=== PATIENT | female | born 1950 | race Caucasian/White ===

== ENCOUNTER 2021-02-03 15:21 | Inpatient (IN) | payer MEDICARE, OTHER ==
[~2021-02-03] VITALS: Ht 157.5 cm; Wt 59.0 kg
--- NOTE | 2021-02-03 15:28 | NUR ---
pt ayesha from a dialysis center, intermediate treatment started c/o shortness of breath. pt is on 02 at home. 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 arrived at ed on 6L via nasal canula. placed on monitor. vss. awaitng md liao.
[2021-02-03] MEDS ORDERED: CITA20TA16 PO (15:43)
--- NOTE | 2021-02-03 15:48 | NUR ---
dr jacinto at bedside for eval.
[2021-02-03] MEDS ORDERED: NITR0.4T48 SL (15:54)
[2021-02-03] MEDS ORDERED: METO100T14 PO (15:54)
[2021-02-03] MEDS ORDERED: ASPI-1169 PO (15:54)
[2021-02-03] MEDS ORDERED: ACYC400T19 PO (15:54)
[2021-02-03] MEDS ORDERED: LEVO25TA7 PO (15:54)
[2021-02-03] MEDS ORDERED: NIFE60TA73 PO (15:54)
[2021-02-03] MEDS ORDERED: FOLI0.8T43 PO (15:54)
[2021-02-03] MEDS ORDERED: ALPR0.255 PO (15:54)
[2021-02-03] MEDS ORDERED: BUPR100T6 PO (15:54)
[2021-02-03] MEDS ORDERED: CYCL100C8 PO (15:54)
[2021-02-03] MEDS ORDERED: DOCU-141 PO (15:54)
[2021-02-03] MEDS ORDERED: OXYC-133 PO (15:54)
--- NOTE | 2021-02-03 16:10 | NUR ---
minilab operator at bedside for eval.
[2021-02-03 16:17] LABS: BASOPHILS # (AUTO) 0.1 K/uL (0.0-0.2); BASOPHILS % (AUTO) 1.6 % (0.0-2.0); EOSINOPHILS % (AUTO) 1.3 % (0.0-6.0); HEMATOCRIT 33 % (33-45); LYMPHOCYTES # (AUTO) 1.2 K/uL (0.8-4.8); LYMPHOCYTES % (AUTO) 20.2 % (20.0-44.0); MEAN CORPUSCULAR HGB CONC 34 g/dl (31.0-36.0); MEAN CORPUSCULAR VOLUME 105 fL (82-100); MONOCYTES # (AUTO) 0.6 K/uL (0.1-1.30); MONOCYTES % (AUTO) 10.2 % (2.0-12.0); NEUTROPHILS # (AUTO) 4.1 K/uL (1.8-8.9); NEUTROPHILS % (AUTO) 66.7 % (43.0-81.0); PLATELET COUNT (AUTO) 224 K/uL (150-450); RED BLOOD CELL COUNT(AUTO) 3.11 MIL/uL (4.0-5.2); WHITE BLOOD COUNT (AUTO) 6.1 K/uL (4.3-11.0)
[2021-02-03 16:41] LABS: ALANINE AMINOTRANSFERASE 50 U/L (12-78); ALBUMIN 2.9 g/dL (3.4-5.0); ALKALINE PHOSPHATASE 156 U/L (46-116); ASPARTATE AMINOTRANSFERASE 43 U/L (15-37); BILIRUBIN,DIRECT 0.3 mg/dL (0.0-0.2); BILIRUBIN,TOTAL 0.9 mg/dL (0.2-1.0); CALCIUM, SERUM 8.2 mg/dL (8.5-10.1); CARBON DIOXIDE 34 mmol/L (21-32); CHLORIDE 96 mmol/L (98-107); CREATININE 3.3 mg/dL (0.6-1.3); GLUCOSE 141 mg/dL (74-106); LIPASE 120 U/L (73-393); POTASSIUM 3.6 mmol/L (3.5-5.1); SODIUM SERUM 131 mmol/L (136-145); UREA NITROGEN, BLOOD 28 mg/dL (7-18)
[2021-02-03] MEDS ORDERED: PIPERACILLIN /TAZOBACTAM 3.375 G in IV D5W 50 ML IV ONE (17:00)
--- NOTE | 2021-02-03 17:23 | NUR ---
MOVE SHEET SUBMITTED.
--- NOTE | 2021-02-03 18:30 | NUR ---
ASKED FOR BED ASSIGNMENT TELE
[2021-02-03] MEDS ORDERED: ALPRAZOLAM 0.25 MG TABLET PO PRN (19:00)
[2021-02-03] MEDS ORDERED: MAG HYDROX/AL HYDROX/SIMETH 30 ML UDC PO PRN (19:00)
[2021-02-03] MEDS ORDERED: HOME MED MISCELLANEOUS XX SCH (19:00)
[2021-02-03] MEDS ORDERED: NITROGLYCERIN 0.4 MG/TAB BOTTLE SL PRN (19:00)
[2021-02-03] MEDS ORDERED: ACETAMINOPHEN 325 MG TABLET PO PRN (19:00)
[2021-02-03] MEDS ORDERED: Z GUARD REMEDY 2 OZ OINT TP PRN (19:00)
[2021-02-03] MEDS ORDERED: HYDROCODONE/APAP 5/325MG TABLET PO PRN (19:00)
[2021-02-03] MEDS ORDERED: MAGNESIUM HYDROXIDE 30 ML UDC PO PRN (19:00)
[2021-02-03] MEDS ORDERED: ONDANSETRON HCL/PF 4 MG/2 ML VIAL IVP PRN (19:00)
[2021-02-03] MEDS ORDERED: MORPHINE SULFATE INJ 2 MG/ML DISP.SYRIN IV PRN (19:00)
[2021-02-03] MEDS ORDERED: TEMAZEPAM 15 MG CAPSULE PO PRN (19:00)
--- NOTE | 2021-02-03 19:11 | NUR ---
report given to molly ramos for dima.
--- NOTE | 2021-02-03 19:18 | NUR ---
NO BED ASSIGNMENT YET.
[2021-02-03] MEDS ORDERED: NALOXONE HCL 0.4 MG/ML AMPUL IV PRN (19:30)
--- NOTE | 2021-02-03 19:38 | NUR ---
FAXED CLINICALS TO [facility] [phone] TEL #[phone]
--- NOTE | 2021-02-03 19:52 | NUR ---
REPORT GIVEN TO ELVIS BONILLA
[2021-02-03] MEDS ORDERED: VANCOMYCIN 1 GM in IV D5W 250ml IV ONE (20:00)
[2021-02-03] MEDS ORDERED: VANCOMYCIN POST DIALYSIS 500MG IV PRN (20:00)
[2021-02-03] MEDS: MORPHINE SULFATE SR 15 MG TABLET.SA PO SCH (21:28)
[2021-02-03] MEDS: METOPROLOL SUCCINATE 50 MG TAB.SR.24H PO SCH (22:01)
[2021-02-04 00:58] VITALS: BP 158/79
[2021-02-04] MEDS: PIPERACILLIN /TAZOBACTAM 2.25 G in IV D5W 50 ML IV SCH ×3 (02:32→18:31)
[2021-02-04 04:00] VITALS: BP 140/70
--- NOTE | 2021-02-04 05:30 | NUR ---
RN notes Admitted a 70 year old female from ER via stretcher with diagnosis of Community acquired PNA secondary to acute hypoxic respiratory failure. On 4lpm via nasal cannula, tolerating well. No distress noted. Complaint of generalized pain, with morphine PO every 12 hours with relief. Alert and oriented x 4. Verbally able to communicate needs. Vital signs wnl. Kept clean and dry. Will endorse to next shift for continuity of care.
[2021-02-04] MEDS: oxyCODONE/APAP (5/325 MG) 1 UDTAB TABLET PO PRN ×2 (06:33→18:30)
[2021-02-04 06:56] LABS: BASOPHILS # (AUTO) 0.1 K/uL (0.0-0.2); BASOPHILS % (AUTO) 1.1 % (0.0-2.0); EOSINOPHILS % (AUTO) 3.8 % (0.0-6.0); HEMATOCRIT 32 % (33-45); HEMOGLOBIN 10.7 g/dL (11.5-14.8); LYMPHOCYTES # (AUTO) 1.4 K/uL (0.8-4.8); LYMPHOCYTES % (AUTO) 23.2 % (20.0-44.0); MEAN CORPUSCULAR HGB CONC 34 g/dl (31.0-36.0); MEAN CORPUSCULAR VOLUME 107 fL (82-100); MONOCYTES # (AUTO) 0.8 K/uL (0.1-1.30); NEUTROPHILS # (AUTO) 3.4 K/uL (1.8-8.9); NEUTROPHILS % (AUTO) 57.9 % (43.0-81.0); PLATELET COUNT (AUTO) 213 K/uL (150-450); RED BLOOD CELL COUNT(AUTO) 3.01 MIL/uL (4.0-5.2); WHITE BLOOD COUNT (AUTO) 5.9 K/uL (4.3-11.0)
[2021-02-04 07:49] LABS: CALCIUM, SERUM 8.4 mg/dL (8.5-10.1); CARBON DIOXIDE 30 mmol/L (21-32); CHLORIDE 95 mmol/L (98-107); GLUCOSE 106 mg/dL (74-106); MAGNESIUM 2.9 mg/dL (1.8-2.4); PHOSPHORUS 4.2 mg/dL (2.5-4.9); POTASSIUM 3.6 mmol/L (3.5-5.1); SODIUM SERUM 131 mmol/L (136-145); UREA NITROGEN, BLOOD 35 mg/dL (7-18)
[2021-02-04 07:52] LABS: CHOLESTEROL 182 mg/dL (<200); HDL CHOLESTEROL 56 mg/dL (40-60); LDL 105 mg/dL (0-99); TRIGLYCERIDES 72 mg/dL (30-150)
[2021-02-04 08:00] VITALS: BP 136/71
--- NOTE | 2021-02-04 08:00 | NUR ---
RN Note: Pt received alert awake O X 4. On 4 LPM O2 via NC, No breathing distress noted. Denies pain & discomfort. Safety measures observed. IV site intact, dry & clean , Saline lock. Ambulatory. Plan for HD today. Encourage Pt to use call light for assistance. Call light within reach. Continue to monitor.
[2021-02-04] MEDS: DOCUSATE SODIUM 100 MG CAPSULE PO SCH ×2 (08:31→18:29)
[2021-02-04] MEDS: ACYCLOVIR 200 MG CAPSULE PO SCH (08:31)
[2021-02-04] MEDS: ASPIRIN 81 MG TAB.CHEW PO SCH (08:31)
[2021-02-04] MEDS: CALCIUM ACETATE 667 MG TABLET PO SCH ×3 (08:31→18:29)
[2021-02-04] MEDS: CITALOPRAM HYDROBROMIDE 20 MG TABLET PO SCH (08:31)
[2021-02-04] MEDS: PANTOPRAZOLE 40 MG TABLET.DR PO SCH (08:31)
[2021-02-04] MEDS: VIT B CMPLX 3/FA/VIT C/BIOTIN 1 TAB TABLET PO SCH (08:32)
[2021-02-04] MEDS: MORPHINE SULFATE SR 15 MG TABLET.SA PO SCH ×2 (08:32→20:45)
[2021-02-04] MEDS: LEVOTHYROXINE SODIUM 75 MCG TABLET PO SCH (08:32)
[2021-02-04] MEDS: APIXABAN 2.5 MG TABLET PO SCH ×2 (08:33→18:31)
[2021-02-04] MEDS: buPROPion SR 100 MG TABLET.ER PO SCH (08:34)
[2021-02-04] MEDS: NIFEdipine XL (30MG) 30 MG TAB PO SCH (08:45)
[2021-02-04] MEDS: METOPROLOL SUCCINATE 50 MG TAB.SR.24H PO SCH ×2 (08:45→22:08)
[2021-02-04] MEDS ORDERED: AMOX-430 PO (11:53)
[2021-02-04 12:00] VITALS: BP 130/70
[2021-02-04 16:00] VITALS: BP 136/83
[2021-02-04] MEDS ORDERED: diphenhydrAMINE HCL ELIX 25 MG/10 ML UDC PO ONE (17:30)
--- NOTE | 2021-02-04 17:40 | NUR ---
RN Note: During HD, Pt C/o itchiness, Jay DNP notified. Received new order for Benedryl 12.5mg PO. Administered as ordered, noted effective.
--- NOTE | 2021-02-04 19:16 | NUR ---
RN Note: Report given to PM shift RN for continuity of care. HD done with 2 L output, tolerated well. Discharge cancelled due to Desaturation on O2 2LPM. Currently pt is on 4.5 L, Spo2 >92%. Jay DNP notified.
[2021-02-04 22:00] VITALS: BP 123/64
[2021-02-04] MEDS ORDERED: POLYETHYLENE GLYCOL 3350 17 GM POWD.PACK PO SCH (22:00)
[2021-02-05] VITALS: BP 130/67
[2021-02-05] MEDS: PIPERACILLIN /TAZOBACTAM 2.25 G in IV D5W 50 ML IV SCH ×2 (02:09→11:22)
[2021-02-05 04:00] VITALS: BP 154/75
--- NOTE | 2021-02-05 04:17 | NUR ---
RN notes Alert and oriented x 4. Verbally able to communicate needs. No distress noted. On 4lpm via nasal cannula, tolerating well. No significant change of condition. Called daughter as requested by the patient and left message to call back. Vital signs wnl. Kept clean and dry. Will endorse to next shift for continuity of care.
--- NOTE | 2021-02-05 07:53 | NUR ---
ACCOUNT RECEIVABLE ASSOCIATE NOTES PATIENT IN BED, 4L OXYGEN, ALERT/ORIENTED, SB HR 57. LEFT AC HEP LOCK IN TACT,LEFT UPPER ARM A/V FISTULA IN PLACE. BED IN LOWEST LOCKED POSITION, SAFETY MEASURES OBSERVED, CALL LIGHT WITHIN REACH, WILL CONTINUE TO MONITOR.
[2021-02-05 08:00] VITALS: BP 160/76
[2021-02-05 08:10] LABS: CALCIUM, SERUM 8.4 mg/dL (8.5-10.1); CARBON DIOXIDE 29 mmol/L (21-32); CHLORIDE 96 mmol/L (98-107); CREATININE 3.2 mg/dL (0.6-1.3); GLUCOSE 97 mg/dL (74-106); POTASSIUM 3.6 mmol/L (3.5-5.1); SODIUM SERUM 133 mmol/L (136-145); UREA NITROGEN, BLOOD 20 mg/dL (7-18)
[2021-02-05] MEDS: VIT B CMPLX 3/FA/VIT C/BIOTIN 1 TAB TABLET PO SCH (08:25)
[2021-02-05] MEDS: PANTOPRAZOLE 40 MG TABLET.DR PO SCH (08:27)
[2021-02-05] MEDS: MORPHINE SULFATE SR 15 MG TABLET.SA PO SCH (08:27)
[2021-02-05] MEDS: ASPIRIN 81 MG TAB.CHEW PO SCH (08:28)
[2021-02-05] MEDS: DOCUSATE SODIUM 100 MG CAPSULE PO SCH (08:28)
[2021-02-05] MEDS: LEVOTHYROXINE SODIUM 75 MCG TABLET PO SCH (08:28)
[2021-02-05] MEDS: NIFEdipine XL (30MG) 30 MG TAB PO SCH (08:28)
[2021-02-05] MEDS: APIXABAN 2.5 MG TABLET PO SCH (08:29)
[2021-02-05] MEDS: CITALOPRAM HYDROBROMIDE 20 MG TABLET PO SCH (08:29)
[2021-02-05] MEDS: METOPROLOL SUCCINATE 50 MG TAB.SR.24H PO SCH (08:30)
[2021-02-05] MEDS: buPROPion SR 100 MG TABLET.ER PO SCH (08:30)
[2021-02-05] MEDS: CALCIUM ACETATE 667 MG TABLET PO SCH ×2 (08:30→12:25)
--- NOTE | 2021-02-05 10:53 | NUR ---
CHEESE TESTER NOTES PT'S HR 56, YADIEL RN LANGUAGES AND LITERATURE INSTRUCTOR AWARE. METOPROLOL WAS WITHHELD.
[2021-02-05] MEDS: ACYCLOVIR 200 MG CAPSULE PO SCH (11:22)
[2021-02-05 12:00] VITALS: BP 140/69
--- NOTE | 2021-02-05 14:01 | NUR ---
SYSTEMS DEVELOPMENT CONSULTANT NOTES DISCHARGE INSTRUCTIONS GIVEN. HEP LOCK REMOVED. NO BLEEDING. DRY DRESSING APPLIED. LEFT A/V FISTULA WITH BRUIT SOUNDS AND HEMODIALYS CATHETER ON THE RIGHT CHEST WALL IN PLACE AND DRESSING IN TACT. INSTRUCTED HOW TO TAKE HOME MEDS AND POSSIBLE SIDE EFFECTS. INSTRUCTED PT ON NEW PRESCRIPTION. ADJUSTMENT CLERK CALLED THE PHARMACY FOR MEDICATION AVAILABILITY. BELONGINGS CHECKED. AWAITING DAUGHTER TO MAIL READER. DISCHARGE INSTRUCTIONS GIVEN AND TO FOLLOW UP WITH PRIMARY CARE DOCTOR.
--- NOTE | 2021-02-05 15:18 | NUR ---
PATIENT SUPPORT ASSISTANT NOTE TAKE TO LOBBY WITH DRY COLOR MIXER ON W\ , LEFT HOSPITAL WITH STABLE CONDITION
== END 2021-02-05 15:10 | disposition home or self-care (01) | DRG 193 ==
LOC: ER 15:31 → TELE1 20:08
PROVIDERS: ADMIT Nurse Practitioner Acute Care; ATTEND Nurse Practitioner Acute Care
PROC: 5A1D70Z Performance of Urinary Filtration, Intermittent, Less than 6 Hours Per Day (ICD-10-PCS; principal; 2021-02-04)
DX: J15.9 Unspecified bacterial pneumonia (principal); J96.21 Acute and chronic respiratory failure with hypoxia; N18.6 End stage renal disease; I50.33 Acute on chronic diastolic (congestive) heart failure; I13.2 Hypertensive heart and chronic kidney disease with heart failure and with stage 5 chronic kidney disease, or end stage renal disease; C92.10 Chronic myeloid leukemia, BCR/ABL-positive, not having achieved remission; E87.1 Hypo-osmolality and hyponatremia; J98.11 Atelectasis; Z20.822 Contact with and (suspected) exposure to COVID-19; I25.10 Atherosclerotic heart disease of native coronary artery without angina pectoris; D63.1 Anemia in chronic kidney disease; E03.9 Hypothyroidism, unspecified; Z95.1 Presence of aortocoronary bypass graft; Z79.890 Hormone replacement therapy; Z99.2 Dependence on renal dialysis; Z95.2 Presence of prosthetic heart valve; M79.7 Fibromyalgia; F41.9 Anxiety disorder, unspecified; F32.9 Major depressive disorder, single episode, unspecified; M89.9 Disorder of bone, unspecified; Z79.82 Long term (current) use of aspirin; I48.0 Paroxysmal atrial fibrillation; I35.0 Nonrheumatic aortic (valve) stenosis
CPT/HCPCS: 36415; 71045-TC; 80048-TC; 80061-TC; 80076-TC; 80202-TC; 83605-TC; 83690-TC; 83735-TC; 84100-TC; 84484-TC; 85025-TC; 87040-TC; 87081-TC; 93307-TC; 97116-TC; 97530-TC; C9803; G0378; J2543; J3370; J7030; J7050; J7060; Q0163; U0003